=== PATIENT | female | born 2005 | race Caucasian/White ===

== ENCOUNTER 2025-09-11 09:05 | Emergency (ER) | payer OTHER ==
[~2025-09-11] VITALS: Ht 160 cm; Wt 90.0 kg
[2025-09-11 09:14] VITALS: TEMP 98.4
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
[2025-09-11] MEDS: ketorolac trometh 30MG/ML vial 30 MG/ML VIAL IM ONE (11:38)
[2025-09-11] MEDS: dexamethasone sod phosphate 10mg/ml inj IM STA (11:39)
[2025-09-11 11:45] VITALS: BP 114/84; PULSE 74; RESP 14; O2SAT 97
== END 2025-09-11 11:46 | disposition home or self-care (01) ==
LOC: ER 09:06
DX: M54.2 Cervicalgia (principal); M25.551 Pain in right hip; Z88.5 Allergy status to narcotic agent; V89.2XXA Person injured in unspecified motor-vehicle accident, traffic, initial encounter; Y93.89 Activity, other specified; Y92.410 Unspecified street and highway as the place of occurrence of the external cause; Y99.8 Other external cause status
CPT/HCPCS: 72040; 96372; 99283; J1885